=== PATIENT | male | born 1985 | race Caucasian/White ===

== ENCOUNTER 2016-09-26 08:28 | Emergency (ER) | payer OTHER ==
[2016-09-26 08:46] VITALS: BP 120/65
--- NOTE | 2016-09-26 09:13 | UC ---
Respiratory Complaint HPI - HPI Summary HPI Summary: Since Wednesday, Chest congestion, with productive cough, sob.Here with Aileen. Tmax 100 5 days ago. no wheezing. + cough. no asthma. + sinus pain/ pressure and behind eyes x 5 days that is not improving. - History of Current Complaint Chief Complaint: UCGeneralIllness Stated Complaint: COUGH,CONGESTION Time Seen by Provider: 09/26/16 08:46 - Allergies/Home Medications Allergies/Adverse Reactions: Allergies Allergy/AdvReac Type Severity Reaction Status Date / Time Carisoprodol [From Soma] Allergy See Comment Verified 09/26/16 08:36 Sulfamethoxazole Allergy Rash Verified 09/26/16 08:36 w/Trimethoprim [From Bactrim] Home Medications: Home Medications Zonisamide 300 mg PO BEDTIME 09/26/16 [History Confirmed 09/26/16] PMH/Surg Hx/FS Hx/Imm Hx Previously Healthy: Yes Endocrine History Of: Denies: Diabetes, Thyroid Disease Cardiovascular History Of: Denies: Cardiac Disorders, Hypertension, Pacemaker/ICD, Congestive Heart Failure Respiratory History Of: Denies: COPD, Asthma GI/ History Of: Denies: Gastroesophageal Reflux, Ulcer, Renal Disease Neurological History Of: Reports: Seizures - new seizure Denies: CVA, Dementia Other History Of: Negative For: Anticoagulant Therapy - Surgical History Surgical History: Yes Surgery Procedure, Year, and Place: tonsillectomy 20 yrs ago. nose repair 7 yrs ago - Family History Known Family History: Negative: Respiratory Disease - Social History Alcohol Use: None Alcohol Amount: none x1 year - promotes seizures Substance Use Type: Marijuana Substance Use Comment - Amount & Last Used: 2-3 times per day Smoking Status (MU): Former Smoker Type: Cigars Amount Used/How Often: 1/2 ppd Have You Smoked in the Last Year: No Household Exposure Type: Cigarettes - Immunization History Most Recent Tetanus Shot: 08/2014 Review of Systems Constitutional: Fatigue Skin: Negative Eyes: Negative ENT: Sore Throat, Nasal Discharge Respiratory: Cough Cardiovascular: Negative Gastrointestinal: Negative Genitourinary: Negative Motor: Negative Neurovascular: Negative Musculoskeletal: Negative Neurological: Negative Psychological: Negative All Other Systems Reviewed And Are Negative: Yes Physical Exam Triage Information Reviewed: Yes Appearance: Well-Appearing, No Pain Distress, Well-Nourished Vital Signs: Initial Vital Signs Temp 97.7 F 09/26/16 08:32 Pulse 69 09/26/16 08:32 Resp 16 09/26/16 08:32 BP 120/65 09/26/16 08:32 Pulse Ox 100 09/26/16 08:32 Vital Signs Reviewed: Yes Eye Exam: Normal ENT: Positive: Hearing grossly normal, Nasal congestion - + PND, Nasal drainage , TMs normal, Other: - + b/l max and frontal sinus tenderness Dental Exam: Normal Neck exam: Normal Neck: Positive: Supple, Nontender, No Lymphadenopathy Respiratory Exam: Normal Respiratory: Positive: Chest non-tender, Lungs clear, No respiratory distress, No accessory muscle use, Decreased breath sounds - mild. Negative: Crackles, Rhonchi, Stridor, Wheezing Cardiovascular Exam: Normal Cardiovascular: Positive: RRR, No Murmur, Pulses Normal, Brisk Capillary Refill Abdominal Exam: Normal Abdomen Description: Positive: Nontender, Soft Musculoskeletal Exam: Normal Neurological Exam: Normal Psychological Exam: Normal Skin Exam: Normal UC Diagnostic Evaluation - Laboratory O2 Sat by Pulse Oximetry: 100 Respiratory Course/Dx - Course Course Of Treatment: sinusitis, mild bronchitis - Differential Dx/Diagnosis Differential Diagnosis/HQI/PQRI: Asthma, Bronchitis, Laryngitis, Lower Resp Infection, Sinusitis Provider Diagnoses: sinusitis, mild bronchitis Discharge - Discharge Plan Condition: Stable Disposition: HOME Prescriptions: Albuterol HFA INHALER* [Ventolin HFA Inhaler*] 2 puff INH Q4H PRN #1 mdi PRN Reason: Cough Amoxicillin (*) 875 mg PO BID #20 tab Patient Education Materials: Sinusitis (ED), Acute Bronchitis (ED) Referrals: Daniel Montero MD [Primary Care Provider] - 3 Days Additional Instructions: Fluids and rest are advised. Take a probiotic daily while you are on the antibiotic.
== END 2016-09-26 09:22 | disposition home or self-care (01) ==
LOC: UCCORT 08:28
DX: J32.9 Chronic sinusitis, unspecified (principal); J40 Bronchitis, not specified as acute or chronic; Z88.2 Allergy status to sulfonamides; F12.90 Cannabis use, unspecified, uncomplicated; Z87.891 Personal history of nicotine dependence
CPT/HCPCS: 99212; G0463

== ENCOUNTER 2019-03-20 17:14 | Emergency (ER) | payer BC, OTHER ==
[2019-03-20 17:30] VITALS: BP 119/61
--- NOTE | 2019-03-20 18:03 | UC ---
Back Pain HPI - HPI Summary HPI Summary: Per fruit bar maker: "Sudden onset low back pain approx 20 minutes ago while pt was sitting up in bed , pain radiates upward into mid back and laterally away from spine. Bowel/ bladder function WNL at this time." -here w/ his -sx started when he was sitting in bed w/ his watching "the office". felt something funny in the same area when he was eating apple slices adn sx started as he tried to get up. the mattress is on the floor which made it even harder to get up/ -no trauma or injury. -he did play disc golf on 03/17 that he wonders if it triggered any sx. -pain in low thoracic, upper lumbar area. rt > left -no numbing/tingling into arms or legs. -takes seizure meds and has been seizure free x 2 yrs -denies HTN, kidney disease and PUD. -did not take any meds prior to arrival - History of Current Complaint Chief Complaint: UCBackPain Stated Complaint: LOWER BACK PAIN Time Seen by Provider: 03/20/19 17:27 Pain Intensity: 9 - Allergies/Home Medications Allergies/Adverse Reactions: Allergies Allergy/AdvReac Type Severity Reaction Status Date / Time sulfamethoxazole Allergy Rash Verified 03/20/19 17:23 [From Bactrim] trimethoprim [From Bactrim] Allergy Rash Verified 03/20/19 17:23 carisoprodol [From Soma] AdvReac See Comment Verified 03/20/19 17:23 Home Medications: Home Medications Loratadine [Claritin 10 MG CAP] 10 mg PO DAILY 03/20/19 [History Confirmed 03/20] PMH/Surg Hx/FS Hx/Imm Hx Previously Healthy: Yes Neurological History: Seizures Other History Of: Negative For: Anticoagulant Therapy - Surgical History Surgical History: Yes Surgery Procedure, Year, and Place: tonsillectomy 20 yrs ago. nose repair 7 yrs ago - Family History Known Family History: Negative: Respiratory Disease - Social History Alcohol Use: None Alcohol Amount: none x1 year - promotes seizures Substance Use Type: Marijuana Substance Use Comment - Amount & Last Used: 2-3 times per day Smoking Status (MU): Former Smoker Type: Cigars Amount Used/How Often: 1/2 ppd Have You Smoked in the Last Year: No Household Exposure Type: Cigarettes - Immunization History Most Recent Tetanus Shot: 08/2014 Review of Systems All Other Systems Reviewed And Are Negative: Yes Constitutional: Positive: Negative Skin: Positive: Negative Eyes: Positive: Negative ENT: Positive: Negative Respiratory: Positive: Negative Cardiovascular: Positive: Negative. Negative: Palpitations, Chest Pain Gastrointestinal: Positive: Negative. Negative: Abdominal Pain, Vomiting, Diarrhea, Nausea Genitourinary: Positive: Negative Motor: Positive: Decreased ROM, Weakness Neurovascular: Positive: Negative. Negative: Decreased Sensation, Decreased Pulses Musculoskeletal: Positive: Decreased ROM, Myalgia. Negative: Arthralgia Neurological: Positive: Negative Psychological: Positive: Negative Is Patient Immunocompromised?: No Physical Exam Triage Information Reviewed: Yes Appearance: Well-Nourished, Pain Distress - bent over in chair holding up his torso. Vital Signs: Initial Vital Signs Temp 99.1 F 03/20/19 17:25 Pulse 80 03/20/19 17:25 Resp 20 03/20/19 17:25 BP 119/61 03/20/19 17:25 Pulse Ox 100 03/20/19 17:25 Vital Signs Reviewed: Yes Eye Exam: Normal Neck exam: Normal Neck: Positive: Supple, Nontender, No Lymphadenopathy Respiratory Exam: Normal Respiratory: Positive: Chest non-tender, Lungs clear, Normal breath sounds, No respiratory distress, No accessory muscle use. Negative: Crackles, Rhonchi, Stridor, Wheezing Cardiovascular Exam: Normal Cardiovascular: Positive: RRR, No Murmur Abdominal Exam: Normal Abdomen Description: Positive: Nontender, Soft Musculoskeletal: Positive: ROM Limited @ - inall planes d/t pain. not tender over spine cervical through sacral. no step off deformities. generalized tenderness over right low thoracic/upper lumbar. Neurological Exam: Normal Neurological: Positive: Alert Psychological Exam: Normal Skin Exam: Normal Skin: Negative: Rashes, Breakdown, Significant Lesion(s) Back Pain Course/Dx - Course Course Of Treatment: low thoraci/upper lumbar muscle spasm likely etiology w/o any trauma. -toradol 60mgs IM x 1 now reduced pain from 9 to 6. he is smiling and can walk more upright. -no xray at this time b/c no trauma or indication at this time/ would consider xray if sx persist/change in next 1-2 wks. -working tomorrow but not the -they were bothe very pleased w/ plan -no muscle relxants b.c interferes w/ sz meds. -short course NSAIDs. - Differential Dx/Diagnosis Differential Diagnosis/HQI/PQRI: Herniated Disc, Strain, Sprain Provider Diagnosis: Spasm of back muscles Discharge - Sign-Out/Discharge Documenting (check all that apply): Patient Departure All imaging exams completed and their final reports reviewed: No Studies - Discharge Plan Condition: Stable Disposition: HOME Prescriptions: Ibuprofen TAB* [Motrin TAB* 800 MG] 800 mg PO Q8H PRN 10 Days #30 tab PRN Reason: Pain - Moderate Patient Education Materials: Muscle Spasm (ED) Forms: *Work Release Referrals: Daniel Montero MD [Primary Care Provider] - 2 Days Additional Instructions: you were given 60mgs of toradol while you were here. You are getting prescription for ibuprofen to take home. Do not take this for more than 7-10 days as it can cause high blood pressure, kideny disease, GI ulcers amongst other issues. Muscle relaxants interact with the zonesamide. -Do not take ibuprofen within 12 hrs of the injection. -topical bio freeze OTC and heat can be very helpful. -Out of work 03/21/19. You should be released to return by your PCP. - Billing Disposition and Condition Condition: STABLE
[2019-03-20] MEDS ORDERED: Ketorolac *IM* INJ* 60 MG/2 ML VIAL IM ONE (18:04)
== END 2019-03-20 18:44 | disposition home or self-care (01) ==
LOC: UCCORT 17:14
DX: M62.830 Muscle spasm of back (principal); R56.9 Unspecified convulsions; Z87.891 Personal history of nicotine dependence
CPT/HCPCS: 96372; 99212; G0463; J1885

== ENCOUNTER 2019-08-05 18:30 | Emergency (ER) | payer OTHER ==
[2019-08-05 19:01] VITALS: BP 129/72
--- NOTE | 2019-08-05 19:04 | UC ---
Back Pain HPI - HPI Summary HPI Summary: 34 yo male with the onset of left thoracic back pain and spasm after wrenching on a car similar symptoms about a month ago hx of sz disorder - History of Current Complaint Chief Complaint: UCBackPain Stated Complaint: BACK INJURY Time Seen by Provider: 08/05/19 19:03 Hx Obtained From: Patient Onset/Duration: Gradual Onset, Lasting Hours Timing: Constant Severity Initially: Severe Severity Currently: Severe Pain Intensity: 10 Pain Scale Used: 0-10 Numeric Back Pain: Is Discrete @ - see image, Radiates To - see image Character: Aching, Throbbing, Spasmodic Aggravating Factor(s): Movement, Lifting, Bending Alleviating Factor(s): Rest, OTC Meds Associated Signs And Symptoms: Positive: Negative Full Body (No Head): 1 - pain here 2 - radiates here - Allergies/Home Medications Allergies/Adverse Reactions: Allergies Allergy/AdvReac Type Severity Reaction Status Date / Time ibuprofen Allergy Unknown had a Verified 08/05/19 18:50 seizure after taking 800 mg ibuprofen. sulfamethoxazole Allergy Rash Verified 03/20/19 17:23 [From Bactrim] trimethoprim [From Bactrim] Allergy Rash Verified 03/20/19 17:23 carisoprodol [From Soma] AdvReac See Comment Verified 03/20/19 17:23 Home Medications: Home Medications Ibuprofen TAB* [Advil TAB*] 800 mg PO Q6H PRN 08/05/19 [History Confirmed ] PMH/Surg Hx/FS Hx/Imm Hx Previously Healthy: Yes Neurological History: Seizures Other History Of: Negative For: Anticoagulant Therapy - Surgical History Surgical History: Yes Surgery Procedure, Year, and Place: tonsillectomy 20 yrs ago. nose repair 7 yrs ago. wisdom teeth extractions - Family History Known Family History: Positive: Hypertension Negative: Respiratory Disease, Seizure Disorder - Social History Alcohol Use: None Alcohol Amount: none x1 year - promotes seizures Substance Use Type: None Substance Use Comment - Amount & Last Used: 2-3 times per day Smoking Status (MU): Current Some Day Smoker Type: Cigarettes Amount Used/How Often: 1/2 ppd Have You Smoked in the Last Year: No Household Exposure Type: Cigarettes - Immunization History Most Recent Tetanus Shot: 08/2014 Review of Systems All Other Systems Reviewed And Are Negative: Yes Constitutional: Positive: Negative Skin: Positive: Negative Eyes: Positive: Negative ENT: Positive: Negative Respiratory: Positive: Negative Cardiovascular: Positive: Negative Gastrointestinal: Positive: Negative Genitourinary: Positive: Negative Motor: Positive: Negative Neurovascular: Positive: Negative Musculoskeletal: Positive: Negative Neurological: Positive: Negative Psychological: Positive: Negative Physical Exam Triage Information Reviewed: Yes Appearance: Well-Appearing, No Pain Distress, Well-Nourished Vital Signs: Initial Vital Signs Temp 98.2 F 08/05/19 18:51 Pulse 77 08/05/19 18:51 Resp 18 08/05/19 18:51 BP 129/72 08/05/19 18:51 Pulse Ox 99 08/05/19 18:51 Vital Signs Reviewed: Yes Eyes: Positive: Conjunctiva Clear ENT: Positive: Hearing grossly normal. Negative: Nasal congestion, Nasal drainage, Tonsillar swelling, Tonsillar exudate, Trismus, Muffled voice, Hoarse voice Dental Exam: Normal Neck: Positive: Supple, Nontender, No Lymphadenopathy Respiratory: Positive: Lungs clear, Normal breath sounds, No respiratory distress, No accessory muscle use Cardiovascular: Positive: RRR, No Murmur Musculoskeletal: Positive: ROM Intact, No Edema Neurological: Positive: Alert Psychological Exam: Normal Skin Exam: Normal - Additional Comments markedly tender left Rhomboid muscle with palpable spasm decreased ROM back Re-Evaluation - Re-Evaluation First Eval Re-Evaluation Time: 19:45 Change: Improved Back Pain Course/Dx - Differential Dx/Diagnosis Provider Diagnosis: Acute thoracic myofascial strain Discharge ED - Sign-Out/Discharge Documenting (check all that apply): Patient Departure All imaging exams completed and their final reports reviewed: No Studies - Discharge Plan Condition: Stable Disposition: HOME Patient Education Materials: Thoracic Back Strain (ED) Referrals: Daniel Montero MD [Primary Care Provider] - 1 Week Additional Instructions: continue current meds may also take tylenol PT consult - Billing Disposition and Condition Condition: STABLE Disposition: Home
[2019-08-05] MEDS ORDERED: Ketorolac INJ* 30 MG/ML 1 ML VIAL IM ONE (19:22)
[2019-08-05] MEDS ORDERED: Acetaminophen TAB* 325 MG PO ONE (19:22)
== END 2019-08-05 19:50 | disposition home or self-care (01) ==
LOC: UCCORT 18:30
DX: S29.012A Strain of muscle and tendon of back wall of thorax, initial encounter (principal); Z88.6 Allergy status to analgesic agent; Z88.2 Allergy status to sulfonamides; X50.1XXA Overexertion from prolonged static or awkward postures, initial encounter; Y92.810 Car as the place of occurrence of the external cause
CPT/HCPCS: 96372; 99212; A9270-GY; G0463; J1885